=== PATIENT | female | born 1970 | race Caucasian/White ===

== ENCOUNTER → 2022-09-19 12:02 | Outpatient (BNVA) | payer MEDICAID, SELFPAY | PROVIDERS: PCP Family Medicine; Visit Provider Family Medicine | DX: R39.9 Unspecified symptoms and signs involving the genitourinary system (principal); I10 Essential (primary) hypertension; B19.20 Unspecified viral hepatitis C without hepatic coma | CPT/HCPCS: 80053; 80061; 81003; 84443; 85025; 86803; 87522; 87902 ==

== ENCOUNTER → 2022-10-27 12:14 | Outpatient (BNVA) | payer MEDICAID, SELFPAY | PROVIDERS: PCP Family Medicine; Visit Provider Family Medicine | DX: Z01.89 Encounter for other specified special examinations (principal) | CPT/HCPCS: 85610; 86705; 86706; 87340; 87806 ==

== ENCOUNTER → 2022-10-30 07:10 | Outpatient (BNVA) | payer MEDICAID, SELFPAY | PROVIDERS: PCP Family Medicine; Visit Provider Family Medicine | DX: B19.20 Unspecified viral hepatitis C without hepatic coma (principal) | CPT/HCPCS: 85610 ==

== ENCOUNTER 2022-11-17 07:13 | Outpatient (CLI) | payer MEDICAID, SELFPAY ==
--- NOTE | 2022-11-17 07:15 | US_ITS ---
WS: [id number] RIGHT UPPER QUADRANT ULTRASOUND HISTORY: Hepatitis C. COMPARISON: None available. Liver: 17.2 cm in length. Top normal size liver. No mass. No nodularity along the liver surface. No m asses. No bile duct dilatation. Portal Vein: Normal hepatopetal flow with monophasic waveform. Portal vein is mildly prominent. Gallbladder: Status post cholecystectomy. CBD: 0.8 cm, slightly enlarged common bile duct is probably related to the cholecystectomy performed years ago. Pancreas: Normal size and echogenicity. Right kidney: 10.9 cm in length. Normal size and echogenicity. No hydronephrosis or mass. Aorta and IVC: Unremarkable abdominal aorta and IVC. No ascites. US/US liver [id number] IMPRESSION: 1. Top normal size liver. No mass. No surface nodularity which can be seen wit h hepatitis C. 2. Prior cholecystectomy.
== END 2022-11-17 07:14 | disposition home or self-care (01) ==
LOC: RAD 07:19
PROVIDERS: PCP Family Medicine; Visit Provider Family Medicine
DX: B19.20 Unspecified viral hepatitis C without hepatic coma (principal); Z90.49 Acquired absence of other specified parts of digestive tract
CPT/HCPCS: 76705; 85610; 86705; 86706; 87340; 87806

== ENCOUNTER → 2022-12-06 08:47 | Outpatient (BNVA) | payer MEDICAID, SELFPAY | PROVIDERS: PCP Family Medicine; Visit Provider Family Medicine | DX: B19.20 Unspecified viral hepatitis C without hepatic coma (principal) | CPT/HCPCS: 87522 ==

== ENCOUNTER 2022-12-23 11:30 | Emergency (ER) | payer MEDICAID, SELFPAY ==
[2022-12-23 11:50] VITALS: BP 136/84; PULSE 76; RESP 16; TEMP 36.9; O2SAT 100
[2022-12-23 12:33] LABS: Basophils % 0.5 %; Eosinophils # 0.2 10^3/uL (0.0-0.8); Eosinophils % 4.5 %; Hematocrit 43.8 % (37.0-47.0); Lymphocytes # 1.7 10^3/uL (0.8-4.8); Lymphocytes % 44.7 %; Mean Corpuscular Hemoglobin 27.2 pg (28.0-34.0); Mean Corpuscular Volume 85.2 fl (81-99); Monocytes # 0.2 10^3/uL (0.2-0.9); Monocytes % 4.8 %; Neutrophils % 45.2 %; Nucleated Red Blood Cells % 0 %; Platelet Count 192 10^3/cmm (130-400); Red Blood Count 5.14 10^6/uL (4.1-5.3); White Blood Count 3.8 10^3/uL (4.0-10.0)
[2022-12-23] MEDS: sodium chloride 0.9% 1,000 ML 999 ML IV (12:35)
[2022-12-23 12:40] LABS: Add Urine Microscopic? YES; Bilirubin Urine Neg (Negative); Blood Urine Neg (Negative); Glucose Urine UA Norm (Normal); Ketones Urine 1+ (Negative); Leukocyte Esterase Urine Trace (Negative); Nitrate Urine Negative (Negative); Protein Urine Neg (Negative); Specific Gravity, Urine 1.015 (1.005-1.030); Urine Appearance SL Hazy (CLEAR); Urine Color Yellow (Yellow); Urobilinogen Urine Norm (Negative); pH Urine 6.5 (5-7)
[2022-12-23 12:41] LABS: Add Urine Culture? No; Bacteria Urine TRACE /hpf; RBC Urine 0-4 /hpf (0-2); Squamous Epithelial Cell Urine 15-25 /hpf (0-5)
--- NOTE | 2022-12-23 12:45 | ED_ITS ---
HPI - General Adult General: Chief complaint: General Medical Stated complaint: kidney Pain Time Seen by Provider: 12/23/22 12:17 Source: patient Mode of arrival: ambulatory Limitations: no limitations History of Present Illness: Patient presents emergency department today for evaluation treatment of right mid back pain. Patient states she has had pain in this area for the last couple of days but, notes recent recurrent issues with kidney infections. Patient states that her last infection was about a month ago and she was treated with antibiotics. She reports she had full resolution of her discomfort after treatment until this episode today. She denies dysuria or lower abdominal pains. She denies hematuria. Patient has not had any fevers. She states she is concerned as these are becoming recurrent and she has never had a specialty evaluation. She is requesting follow-up with urology. Patient also indicates she is currently hep C positive but is in her last week of treatment. Review of Systems General: Reports: 10 or more systems reviewed and unremarkable except in HPI and below PFSH ED PFSH: Medical History Hepatitis C Trigger finger of left hand Surgical History Hx of section Hx of cholecystectomy Hx of tubal ligation Family History Mother Diabetes Cancer CAD (coronary artery disease) Hypertension Father Diabetes Chronic kidney disease (CKD) CAD (coronary artery disease) Hypertension Stroke Sister Diabetes Hypertension Brother Diabetes Hypertension Grandmother Chronic kidney disease (CKD) Stroke Denies family history of Clotting disorder Psychiatric illness Bleeding disorder Social History Smoking and tobacco status: current every day smoker cigarettes Packs smoked per day: 1 Years cigarettes smoked: 40 Second hand smoke exposure: Yes Alcohol intake: current Alcohol intake frequency: holidays/special occasions only Alcohol type: hard liquor Substance/Drug Use: current Substance/Drug use frequency: few times a week Last substance use date: 08/10/22 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 Adopted: No Caregiver/support person: Yes Lives independently: Yes Marital status: / service: No Current occupational status: unemployed Current gender identity: Female Special carrillo needs: No Agree to transfusion: Yes Physical Exam Const: COMMON NORMALS: no acute distress, patient oriented x3, healthy appearing and alert HENMT: COMMON NORMALS: normocephalic, atraumatic, hearing grossly normal bilaterally, Normal external nose present and moist oral mucous membranes HEAD & SCALP: normocephalic and atraumatic NOSE: Normal external nose present Eye: COMMON NORMALS: Equal, round and reactive pupils present, EOMs intact bilaterally and conjunctivae normal CONJUNCTIVA: Yes conjunctivae normal PUPIL: Yes Equal, round and reactive pupils present Neck/C-Spine: COMMON NORMALS: full ROM, no meningeal signs and no JVD Lymph: LYMPHATIC: no lymphadenopathy noted Resp: COMMON NORMALS: normal respiratory effort, No retractions and No use of accessory muscles Cardio: COMMON NORMALS: no JVD, regular rate and Peripheral pulses 2+ throughout RATE: regular rate PERIPHERAL PULSES: Peripheral pulses 2+ throughout GI: OTHER: Normoactive bowel sounds. Abdomen is soft without point specific tenderness. Back/Pelvis: COMMON NORMALS: thoraco-lumbar ROM normal and straight leg raise negative bilaterally OTHER: Patient has right CVA tenderness on palpation. Extremity: COMMON NORMALS: normal to inspection, full ROM, no joint enlargement and no calf tenderness GENERAL: Yes normal exam except as noted Neuro: COMMON NORMALS: patient oriented x3, CN's II-XII intact bilaterally, moves all extremities, no focal motor deficits and no sensory deficits noted SENSORIUM/ORIENTATION: Yes alert MENINGEAL SIGNS: Yes no meningeal signs Course Vital Signs: Vital signs: Vital Signs Temperature 98.4 F 12/23/22 11:50 Pulse Rate 59 L 12/23/22 13:22 Respiratory Rate 16 12/23/22 13:22 Blood Pressure 154/96 12/23/22 13:22 Pulse Oximetry 97 12/23/22 13:22 Oxygen Delivery Me thod Room Air 12/23/22 13:22 [facility] - General Adult Medical Decision Making Patient presents today with concerns for return of urinary tract infection. Patient does have some very mild findings of concern on her UA but, kidney function is within normal limits. She does have right-sided CVA tenderness and, with her reports of recurrent issues, we will culture her urine and I did request follow-up appointment with urology to discuss her concerns. Patient is started on Macrobid. She was given strict return precautions for signs of pyelonephritis. Differential Diagnosis Thoracic muscle strain, lumbar strain, pyelonephritis, kidney stone, UTI, constipation Lab Data 12/23/22 12:25 12/23/22 12:25 Laboratory Results WBC 3.8 10^3/uL (4.0-10.0) L 12/23/22 12:25 RBC 5.14 10^6/uL (4.1-5.3) 12/23/22 12:25 Hgb 14.0 g/dL (11.5-15.3) 12/23/22 12:25 Hct 43.8 % (37.0-47.0) 12/23/22 12:25 MCV 85.2 fl (81-99) 12/23/22 12:25 MCH 27.2 pg (28.0-34.0) L 12/23/22 12:25 MCHC 32.0 g/dL (30.0-36.0) 12/23/22 12:25 RDW 14.0 % (12.1-15.1) 12/23/22 12:25 Plt Count 192 10^3/cmm (130-400) 12/23/22 12:25 MPV 10.0 fL (7.4-10.4) 12/23/22 12:25 Neut % (Auto) 45.2 % 12/23/22 12:25 Lymph % (Auto) 44.7 % 12/23/22 12:25 [place] % (Auto) 4.8 % 12/23/22 12:25 Eos % (Auto) 4.5 % 12/23/22 12:25 Baso % (Auto) 0.5 % 12/23/22 12:25 Neut # (Auto) 1.70 10^3/uL (1.8-7.7) L 12/23/22 12:25 Lymph # (Auto) 1.7 10^3/uL (0.8-4.8) 12/23/22 12:25 [place] # (Auto) 0.2 10^3/uL (0.2-0.9) 12/23/22 12:25 Eos # (Auto) 0.2 10^3/uL (0.0-0.8) 12/23/22 12:25 Baso # (Auto) 0.0 10^3/uL (0.0-0.1) 12/23/22 12:25 Nucleated RBC % (auto) 0 % 12/23/22 12:25 Nucleated RBCs # 0.0 /100WBC 12/23/22 12:25 Sodium 137 mmol/L (136-145) 12/23/22 12:25 Potassium 3.5 mmol/L (3.5-5.1) 12/23/22 12:25 Chloride 100 mmol/L (98-107) 12/23/22 12:25 Carbon Dioxide 32 mmol/L (22-29) H 12/23/22 12:25 Anion Gap 8.5 (5-19) 12/23/22 12:25 BUN 9 mg/dL (6-20) 12/23/22 12:25 Creatinine 0.7 mg/dL (0.5-0.9) 12/23/22 12:25 GFR Calculation 87.9 mL/min (90-130) L 12/23/22 12:25 Glucose 95 mg/dL (65-115) 12/23/22 12:25 Calculated Osmolality 282 mOsm/kg (285-295) L 12/23/22 12:25 Calcium 9.0 mg/dL (8.5-10.5) 12/23/22 12:25 Total Bilirubin 0.4 mg/dL (0.15-1.2) 12/23/22 12:25 AST 15 U/L (0-32) 12/23/22 12:25 ALT 9 U/L (0-33) 12/23/22 12:25 Alkaline Phosphatase 110 U/L (35-105) H 12/23/22 12:25 Total Protein 7.8 g/dL (6.6-8.7) 12/23/22 12:25 Albumin 4.3 g/dL (3.5-5.2) 12/23/22 12:25 Globulin 3.5 g/dL (1.3-4.6) 12/23/22 12:25 Urine Color Yellow (Yellow) 12/23/22 12:08 Urine Appearance Sl hazy (CLEAR) A 12/23/22 12:08 Urine pH 6.5 (5-7) 12/23/22 12:08 Ur Specific [place] 1.015 (1.005-1.030) 12/23/22 12:08 Urine Protein Neg (Negative) 12/23/22 12:08 Urine Glucose (UA) Norm (Normal) 12/23/22 12:08 Urine Ketones 1+ (Negative) H 12/23/22 12:08 Urine Blood Neg (Negative) 12/23/22 12:08 Urine Nitrate Negative (Negative) 12/23/22 12:08 Urine Bilirubin Neg (Negative) 12/23/22 12:08 Urine Urobilinogen Norm mg/dL (Negative) 12/23/22 12:08 Ur Leukocyte Esterase Trace (Negative) H 12/23/22 12:08 Urine RBC 0-4 /hpf (0-2) H 12/23/22 12:08 Urine WBC 5-10 /hpf (0-5) H 12/23/22 12:08 Ur Squamous Epith Cells 15-25 /hpf (0-5) H 12/23/22 12:08 Amorphous Sediment Not Reportable 12/23/22 12:08 Urine Bacteria Trace /hpf (NONE) 12/23/22 12:08 Discharge Plan Discharge Patient Disposition: Home Clinical Impression: Acute right flank pain Condition: Stable Prescriptions: New Macrobid 100 mg capsule 100 mg PO BID 7 Days Qty: 14 0RF Rx Instructions: must administer with a meal/food No Action cetirizine [Zyrtec] 10 mg tablet 10 mg PO DAILY PRN (Reason: allergy symptoms) Qty: 30 0RF azithromycin [Zithromax Z-Carlos] 250 mg tablet See Rx Instructions PO .COMPLEX Qty: 6 0RF Rx Instructions: take 500 mg today (day 1), then 250 mg for 4 days (days 2-5) PO valsartan [Diovan] 160 mg tablet 160 mg PO DAILY Qty: 30 4RF Mavyret 100-40 mg tablet 3 tab PO DAILY 56 Days Qty: 168 0RF Rx Instructions: must administer with a meal/food Discharge Orders: Discharge ED (Routine); Ordered 12/23/22 Ordered By: Carolyn Cunha Referrals: Lissa Cobos MD [Primary Care Provider] - Discharge Diet: Usual diet Discharge Activity: Increase activity as tolerated Activity Restrictions/Additional Instructions: Lab work shows no signs of any septicemia. There are findings of a mild infection however, with your recurrent history, you most likely notice onset of symptoms earlier than most. I have requested a follow-up appointment with urology given the recurrent issues you are having and have provided you a prescription for antibiotics to begin treatment while you wait for your follow- up. Coding Level of Care Code ED [employer] Lug[employer] for Luís Ruelas
[2022-12-23 12:57] LABS: Alanine Aminotransferase 9 U/L (0-33); Albumin Level 4.3 g/dL (3.5-5.2); Alkaline Phosphatase 110 U/L (35-105); Anion Gap 8.5 (5-19); Aspartate Amino Transferase 15 U/L (0-32); Blood Urea Nitrogen 9 mg/dL (6-20); Carbon Dioxide 32 mmol/L (22-29); Chloride 100 mmol/L (98-107); Globulin 3.5 g/dL (1.3-4.6); Glomerular Filtration Rate 87.9 mL/min (90-130); Glucose 95 mg/dL (65-115); Osmolality Calculated 282 mOsm/kg (285-295); Potassium 3.5 mmol/L (3.5-5.1); Sodium 137 mmol/L (136-145); Total Bilirubin 0.4 mg/dL (0.15-1.2); Total Protein 7.8 g/dL (6.6-8.7)
[2022-12-23 13:22] VITALS: BP 154/96; PULSE 59; RESP 16; O2SAT 97
--- NOTE | 2022-12-24 05:07 | DCPLANNER ---
Addendum entered by Farhana Guevara 01/19/23 11:13: manager of distribution called [facility] to confirm that patients information had been received. manager of distribution told that patients information had been received, it will be reviewed, and clinic will call patient with appointment information. Addendum entered by Farhana Guevara 12/30/22 12:06: manager of distribution received the following message from the urology clinic: Please send elsewhere due to Dr. Boyer's retrirement. Thank you manager of distribution called patient and explained this, patient stated she would like to be referred to [facility]. manager of distribution faxed patients information to the [facility] clinic. Patients information will be reviewed, clinic will call patient with appointment information. Original Note: manager of distribution had message to schedule a follow up appointment for patient with urology. manager of distribution sent patients information to the front office staff at urology. Patients information will be printed and reviewed. Clinic will call patient with appointment information.
--- NOTE | 2022-12-26 15:08 | PC.SOCIAL ---
Addendum entered by Farhana Guevara 01/15/23 15:15: base manager called to confirm that [facility] received patients information, clinic had received it, will call patient with appointment information. Original Note: Urology F/u Referral faxed to [facility] at this time.
== END 2022-12-23 13:42 | disposition home or self-care (01) ==
PROVIDERS: Emergency Provider Physician Assistant; PCP Family Medicine
DX: R10.9 Unspecified abdominal pain (principal); F17.210 Nicotine dependence, cigarettes, uncomplicated; Z86.19 Personal history of other infectious and parasitic diseases
CPT/HCPCS: 80053; 81001; 85025; 96360; 99284; J7030

== ENCOUNTER → 2023-01-11 09:44 | Outpatient (BNVA) | payer MEDICAID, SELFPAY | PROVIDERS: PCP Family Medicine; Visit Provider Family Medicine | DX: B19.20 Unspecified viral hepatitis C without hepatic coma (principal) | CPT/HCPCS: 87522 ==

== ENCOUNTER → 2023-05-25 12:18 | Outpatient (BNVA) | payer MEDICAID, SELFPAY | PROVIDERS: PCP Family Medicine; Visit Provider Family Medicine | DX: Z86.39 Personal history of other endocrine, nutritional and metabolic disease (principal) | CPT/HCPCS: 80053 ==

== ENCOUNTER → 2024-09-01 14:23 | Outpatient (BNVA) | payer OTHER, SELFPAY | PROVIDERS: Family Provider Nurse Practitioner Family; PCP Nurse Practitioner Family; Visit Provider Nurse Practitioner Family | DX: S79.912A Unspecified injury of left hip, initial encounter (principal); W06.XXXA Fall from bed, initial encounter; M51.362 Other intervertebral disc degeneration, lumbar region with discogenic back pain and lower extremity pain; M51.372 Other intervertebral disc degeneration, lumbosacral region with discogenic back pain and lower extremity pain | CPT/HCPCS: 72100; 73502 ==

== ENCOUNTER 2024-11-28 23:19 | Emergency (ER) | payer OTHER, SELFPAY ==
[2024-11-28 23:20] VITALS: BP 114/71; PULSE 88; RESP 18; TEMP 36.6; O2SAT 91; BMI 25.0
--- NOTE | 2024-11-29 00:16 | ED_ITS ---
HPI - Skin/Abscess/Foreign Bdy 2 General: Chief complaint: Skin/Abscess/Foreign Body Stated complaint: R side back side spider bite Time Seen by Provider: 11/28/24 23:58 History of Present Illness: The patient presents to the emergency room with a chief complaint of a spider bite that occurred last night. The patient reports waking up this morning and noticing redness on their hands. They describe feeling a sting when the bite occurred while lying in bed at home. The patient did not see the spider clearly but mentions seeing its legs. The bite site is painful, and the patient has been using epsom salts for pain relief, which they report makes it not hurt so bad. The patient mentions having had a spider bite before. They express concern about needing antibiotics, though they do not report any systemic symptoms. When asked about abdominal pain, the patient indicates it is not bad. The patient's description suggests some local reaction to the bite, including redness and possible necrosis. They did not capture or fully visualize the spider, limiting the ability to identify the species. The patient's use of home remedies (epsom salts) indicates they have been attempting to manage the symptoms independently before seeking medical attention. Related Data Previous Rx's ?Medication ?Instructions ?Recorded cetirizine 10 mg tablet (Zyrtec) 10 mg PO DAILY PRN al lergy 10/13/24 symptoms #30 tabs citalopram 20 mg tablet (Celexa) 20 mg PO DAILY #30 ta bs 10/13/24 Allergies Allergy/AdvReac Type Severity Reaction Status Date / Time morphine Allergy ADR-Nausea Verified 11/28/24 23:28 Review of Systems 2 General: Reports: 10 or more systems reviewed and unremarkable except in HPI and below PFSH ED 2 PFSH: Medical History Trigger finger of left hand Hepatitis C Surgical History Hx of cholecystectomy Hx of tubal ligation Hx of section Family History Mother Diabetes Cancer CAD (coronary artery disease) Hypertension Father Diabetes Chronic kidney disease (CKD) CAD (coronary artery disease) Hypertension Stroke Sister Diabetes Hypertension Brother Diabetes Hypertension Grandmother Chronic kidney disease (CKD) Stroke Denies family history of Clotting disorder Psychiatric illness Bleeding disorder Social History Smoking and tobacco/nicotine status: current every day tobacco/nicotine user cigarettes Packs smoked per day: 1 Years cigarettes smoked: 40 Second hand smoke exposure: Yes Alcohol intake: current Alcohol intake frequency: holidays/special occasions only Alcohol type: hard liquor Substance/Drug Use: current Substance/Drug use frequency: few times a week Adopted: No Caregiver/support person: Yes Lives independently: Yes Marital status: / service: No Current occupational status: unemployed Current gender identity: Female Special carrillo needs: No Agree to transfusion: Yes Physical Exam 2 Const: COMMON NORMALS: no acute distress, patient oriented x3, healthy appearing, alert and well nourished HENMT: COMMON NORMALS: normocephalic HEAD & SCALP: normocephalic Eye: COMMON NORMALS: EOMs intact bilaterally Neck/C-Spine: COMMON NORMALS: full ROM and supple Resp: COMMON NORMALS: normal respiratory effort, No retractions and clear to auscultation bilaterally AUSCULTATION: clear to auscultation bilaterally Cardio: COMMON NORMALS: regular rate, regular rhythm, No gallops present (Cardio) and No murmurs present (Cardio) RATE: regular rate RHYTHM: r egular rhythm GI: COMMON NORMALS: Soft to palpation and non-tender PALPATION: Yes Soft to palpation Extremity: GENERAL: Yes normal exam except as noted Neuro: COMMON NORMALS: patient oriented x3 SENSORIUM/ORIENTATION: Yes alert Skin: LESIONS: lesion noted (Arrhythmia on the right flank with hives noted on arms and legs) Course 2 Vital Signs: Vital signs: Vital Signs Temperature 97.8 F 11/28/24 23:20 Pulse Rate 88 11/28/24 23:20 Respiratory Rate 18 11/28/24 23:20 Blood Pressure 114/71 11/28/24 23:20 Pulse Oximetry 91 11/28/24 23:20 Oxygen Delivery Me thod Room Air 11/28/24 23:20 MDM - Skin/Abscess/Foreign Bdy Medicial Decision Making 54-year-old female presents to the emergency department for evaluation after a spider bite yesterday. The bite area does appear to have an area of ecchymosis at the center. She also has urticaria on her legs. She received methylprednisolone and diphenhydramine in the emergency department. The urticaria did improve. The spider bite did not have an area of fluctuance to drain. She did not have an elevated white count, anemia. She did have a slightly low platelet count. LDH was normal lastly she did have a slight. Increase in her creatinine. Encouraged the patient to follow-up with her primary care physician for these incidental findings. Counseled the patient on return precautions and the patient was discharged home in stable condition. Lab Data 11/29/24 00:42 11/29/24 00:42 Laboratory Results WBC 6.98 10^3/uL (3.29-11.43) 11/29/24 00:42 RBC 4.11 10^6/uL (3.85-5.65) 11/29/24 00:42 Hgb 11.60 g/dL (11.27-16.99) 11/29/24 00:42 Hct 34.8 % (36-47) L 11/29/24 00:42 MCV 84.7 fl (85-98) L 11/29/24 00:42 MCH 28.2 pg (27-33) 11/29/24 00:42 MCHC 33.3 g/dL (30-55) 11/29/24 00:42 RDW 13.9 % (12.1-15.1) 11/29/24 00:42 Plt Count 148 10^3/cmm (157-399) L 11/29/24 00:42 MPV 10.2 fL (7.4-10.4) 11/29/24 00:42 Neut % (Auto) 81.6 % 11/29/24 00:42 Lymph % (Auto) 11.9 % 11/29/24 00:42 [place] % (Auto) 2.4 % 11/29/24 00:42 Eos % (Auto) 3.9 % 11/29/24 00:42 Baso % (Auto) 0.1 % 11/29/24 00:42 Neut # (Auto) 5.69 10^3/uL (1.8-7.7) 11/29/24 00:42 Lymph # (Auto) 0.8 10^3/uL (0.8-4.8) 11/29/24 00:42 [place] # (Auto) 0.2 10^3/uL (0.2-0.9) 11/29/24 00:42 Eos # (Auto) 0.3 10^3/uL (0.0-0.8) 11/29/24 00:42 Baso # (Auto) 0.0 10^3/uL (0.0-0.1) 11/29/24 00:42 Nucleated RBC % (auto) 0 % 11/29/24 00:42 Nucleated RBCs # 0.0 /100WBC 11/29/24 00:42 Sodium 137 mmol/L (136-145) 11/29/24 00:42 Potassium 3.7 mmol/L (3.5-5.1) 11/29/24 00:42 Chloride 101 mmol/L (98-107) 11/29/24 00:42 Carbon Dioxide 25 mmol/L (22-29) 11/29/24 00:42 Anion Gap 14.7 (5-19) 11/29/24 00:42 BUN 16 mg/dL (6-20) 11/29/24 00:42 Creatinine 1.0 mg/dL (0.5-0.9) H 11/29/24 00:42 GFR Calculation 57.8 mL/min (90-130) L 11/29/24 00:42 Glucose 114 mg/dL (65-115) 11/29/24 00:42 Calculated Osmolality 286 mOsm/kg (285-295) 11/29/24 00:42 Calcium 9.1 mg/dL (8.5-10.5) 11/29/24 00:42 Total Bilirubin 0.9 mg/dL (0.15-1.2) 11/29/24 00:42 AST 14 U/L (0-32) 11/29/24 00:42 ALT 6 U/L (0-33) 11/29/24 00:42 Alkaline Phosphatase 77 U/L (35-105) 11/29/24 00:42 Lactate Dehydrogenase 206 U/L (135-214) 11/29/24 00:42 Total Protein 7.0 g/dL (6.6-8.7) 11/29/24 00:42 Albumin 3.7 g/dL (3.5-5.2) 11/29/24 00:42 Globulin 3.3 g/dL (1.3-4.6) 11/29/24 00:42 Urine Color [place] (Yellow) A 11/29/24 01:18 Urine Appearance Clear (CLEAR) 11/29/24 01:18 Urine pH 6.5 (5-7) 11/29/24 01:18 Ur Specific [place] 1.017 (1.005-1.030) 11/29/24 01:18 Urine Protein Negative (Negative) 11/29/24 01:18 Urine Glucose (UA) Negative (Normal) 11/29/24 01:18 Urine Ketones Negative (Negative) 11/29/24 01:18 Urine Blood Negative (Negative) 11/29/24 01:18 Urine Nitrate Negative (Negative) 11/29/24 01:18 Urine Bilirubin Negative (Negative) 11/29/24 01:18 Urine Urobilinogen 1.0 mg/dL (Negative) 11/29/24 01:18 Ur Leukocyte Esterase Trace (Negative) A 11/29/24 01:18 Urine RBC 0-2 /hpf (0-2) 11/29/24 01:18 Urine WBC 0-5 /hpf (0-5) 11/29/24 01:18 Ur Squamous Epith Cells 0-5 /hpf (0-5) 11/29/24 01:18 Amorphous Sediment Not Reportable 11/29/24 01:18 Urine Bacteria Trace /hpf (NONE) 11/29/24 01:18 Hyaline Casts 0.81 /lpf 11/29/24 01:18 No radiology studies performed this visit Discharge Plan Discharge Patient Disposition: Home Clinical Impression: Spider bite, venomous, Urticaria Condition: Stable Prescriptions: No Action cetirizine [Zyrtec] 10 mg tablet 10 mg PO DAILY PRN (Reason: allergy symptoms) Qty: 30 5RF citalopram [Celexa] 20 mg tablet 20 mg PO DAILY Qty: 30 5RF Discharge Orders: Discharge ED (Routine); Ordered 11/29/24 Ordered By: Jerome Leija Referrals: Danitza Antonio FNP-C [Primary Care Provider, Family Practice] Discharge Diet: Advance as tolerated Discharge Activity: Increase activity as tolerated Patient Instructions: Opioid Safety, Pain Management Activity Restrictions/Additional Instructions: Please monitor the spider bite for signs of infection or expansion. Additionally, please return to the emergency department if you develop shortness of breath, chest pain, chest pain, fevers, or other new or worsening symptoms. Please follow-up with your primary care physician for the incidental findings in your labs. Print Language: Slovenian Coding Level of Care Code ED Vice President Tax for Luís Ruelas
[2024-11-29] MEDS: methylPREDNISolone (DEPO) 80 MG/ML INJ 1 mL IM (00:30)
[2024-11-29] MEDS: diphenhydrAMINE 50 mg Capsule PO (00:30)
[2024-11-29 00:47] LABS: Basophils % 0.1 %; Eosinophils # 0.3 10^3/uL (0.0-0.8); Eosinophils % 3.9 %; Hematocrit 34.8 % (36-47); Lymphocytes # 0.8 10^3/uL (0.8-4.8); Lymphocytes % 11.9 %; Mean Corpuscular HGB Conc 33.3 g/dL (30-55); Mean Corpuscular Hemoglobin 28.2 pg (27-33); Mean Corpuscular Volume 84.7 fl (85-98); Mean Platelet Volume 10.2 fL (7.4-10.4); Monocytes # 0.2 10^3/uL (0.2-0.9); Monocytes % 2.4 %; Neutrophils # 5.69 10^3/uL (1.8-7.7); Neutrophils % 81.6 %; Nucleated Red Blood Cells % 0 %; Platelet Count 148 10^3/cmm (157-399); Red Blood Count 4.11 10^6/uL (3.85-5.65); Red Cell Distribution Width 13.9 % (12.1-15.1); White Blood Count 6.98 10^3/uL (3.29-11.43)
[2024-11-29 01:03] LABS: Alanine Aminotransferase 6 U/L (0-33); Albumin Level 3.7 g/dL (3.5-5.2); Alkaline Phosphatase 77 U/L (35-105); Anion Gap 14.7 (5-19); Aspartate Amino Transferase 14 U/L (0-32); Blood Urea Nitrogen 16 mg/dL (6-20); Calcium 9.1 mg/dL (8.5-10.5); Carbon Dioxide 25 mmol/L (22-29); Chloride 101 mmol/L (98-107); Creatinine Clr Calc Pharmacy 62.3539; Globulin 3.3 g/dL (1.3-4.6); Glomerular Filtration Rate 57.8 mL/min (90-130); Glucose 114 mg/dL (65-115); Lactate Dehydrogenase 206 U/L (135-214); Osmolality Calculated 286 mOsm/kg (285-295); Potassium 3.7 mmol/L (3.5-5.1); Sodium 137 mmol/L (136-145); Total Bilirubin 0.9 mg/dL (0.15-1.2)
[2024-11-29 01:34] LABS: Bilirubin Urine Negative (Negative); Blood Urine Negative (Negative); Glucose Urine UA Negative (Normal); Ketones Urine Negative (Negative); Leukocyte Esterase Urine Trace (Negative); Nitrate Urine Negative (Negative); Protein Urine Negative (Negative); Specific Gravity, Urine 1.017 (1.005-1.030); Urine Appearance Clear (CLEAR); pH Urine 6.5 (5-7)
[2024-11-29 01:39] LABS: Add Urine Microscopic? YES; Bacteria Urine Trace /hpf; Hyaline Casts Urine 0.81 /lpf; RBC Urine 0-2 /hpf (0-2); Squamous Epithelial Cell Urine 0-5 /hpf (0-5); WBC Urine 0-5 /hpf (0-5)
[2024-11-29 01:52] LABS: Urine Color Orange (Yellow)
[2024-11-29 02:25] VITALS: BP 113/67; PULSE 86; RESP 17; O2SAT 98
== END 2024-11-29 02:25 | disposition home or self-care (01) ==
PROVIDERS: Emergency Provider General Practice; Family Provider Nurse Practitioner Family; PCP Nurse Practitioner Family
DX: T63.301A Toxic effect of unspecified spider venom, accidental (unintentional), initial encounter (principal); L02.211 Cutaneous abscess of abdominal wall; L50.9 Urticaria, unspecified; F17.210 Nicotine dependence, cigarettes, uncomplicated
CPT/HCPCS: 36415; 80053; 81001; 83615; 85025; 96372; 99284; J1010; Q0163

== ENCOUNTER → 2024-12-03 13:53 | Outpatient (BNVA) | payer OTHER, SELFPAY | PROVIDERS: Family Provider Nurse Practitioner Family; PCP Nurse Practitioner Family; Visit Provider Nurse Practitioner Family | DX: T63.301A Toxic effect of unspecified spider venom, accidental (unintentional), initial encounter (principal); X58.XXXA Exposure to other specified factors, initial encounter | CPT/HCPCS: 80053; 85025 ==

== ENCOUNTER 2024-12-19 11:11 | Outpatient (CLI) | payer OTHER, SELFPAY ==
--- NOTE | 2024-12-19 11:15 | US_ITS ---
WS: [id number] Subcutaneous ultrasound of spider bite on right chest wall, 12/19/2024 Clinical Data: R22.9 - Localized swelling, mass and lump, unspecified Comparison: None. Findings: The area of the spider bite with on the right chest wall. Images reveal an area of mixed echotexture measuring 1.3 x 2.0 x 3.3 cm. The echotexture was different from the surrounding subcutaneous tissue. No fluid-fluid levels could be seen. There is no air within this lesion. There is no significant vascularity. US/US soft tissue/extremity [id number] Impression: Subcutaneous lesion corresponding to spider bite which probably represents a lo calized area of inflammation with greatest dimension of 3.3 cm.
== END 2024-12-19 11:12 | disposition home or self-care (01) ==
PROVIDERS: Family Provider Nurse Practitioner Family; PCP Nurse Practitioner Family; Visit Provider Nurse Practitioner Family
DX: R22.9 Localized swelling, mass and lump, unspecified (principal)
CPT/HCPCS: 76882